=== PATIENT | male | born 2000 | race Caucasian/White ===

== ENCOUNTER 2022-06-10 19:24 | Emergency (ER) | payer BC, SELFPAY ==
--- NOTE | ~2022-06-10 | CT_ITS ---
EXAMINATION: CT ABDOMEN AND PELVIS WITHOUT CONTRAST CLINICAL INFORMATION: Left lower quadrant abdominal pain. COMPARISON: None. TECHNIQUE: Multidetector volumetric imaging was performed from the superior aspect of the liver through the pubic symphysis. Sagittal and coronal reformatted images were obtained on the technologist workstation. This CT examination was performed using dose optimization techniques as appropriate, variously including the following: *Automated exposure control *Adjustment of mA and/or kV according to patient size (this includes techniques or standardized protocols for targeted exams where dose is matched to indication/reason for exam; i.e. extremities or head) *Use of iterative reconstruction technique DLP: 640 mGy-cm. FINDINGS: LUNG BASES: The visualized lung bases are unremarkable. LIVER, GALLBLADDER, AND BILIARY TREE: The liver is normal in size, shape, and attenuation. No focal hepatic lesion on noncontrast imaging. No biliary ductal dilatation is present. The gallbladder is contracted and suboptimally assessed, but grossly unremarkable. No evidence of radiopaque gallstones, gallbladder wall thickening, or obvious pericholecystic inflammatory changes. PANCREAS: Unremarkable on noncontrast imaging. SPLEEN: Unremarkable. ADRENAL GLANDS: Right adrenal gland normal. Mild hypertrophy of left adrenal gland seen. No discrete adrenal mass. KIDNEYS AND URETERS: The kidneys are normal in size, shape, and attenuation. No hydronephrosis, hydroureter, or calculi seen. No perinephric stranding. BLADDER: Decompressed and suboptimally assessed, but grossly unremarkable. No bladder stones seen.. PELVIC VISCERA: Unremarkable. GASTROINTESTINAL TRACT: The small and large bowel are decompressed. There is prominent right lower quadrant mesenteric adenitis seen with the largest lymph node measuring 1.7 x 1.3 cm (series 5, image 39). The cecal base and appendix appear unremarkable. There is fecalization of the succus entericus in the terminal and distal ileum, perhaps signifying stasis. No definite terminal ileal bowel wall thickening or surrounding mesenteric fat stranding or edema is noted. No mesenteric hyperemia is seen. Moderate stool burden is seen throughout the colon, which is decompressed and otherwise unremarkable. No free fluid or evidence of bowel perforation or obstruction is noted. No free air is seen.. The appendix is unremarkable. ABDOMINAL WALL: There is a tiny fat-containing umbilical hernia. LYMPH NODES, VASCULAR: Unremarkable. OSSEOUS STRUCTURES: There is minimal grade 1 retrolisthesis of L5 on S1. Bony structures otherwise unremarkable.. CT/CT abdomen pelvis wo IV con IMPRESSION: 1. Prominent right lower quadrant mesenteric adenitis is seen. 2. Fecalization of the succus entericus in the terminal and distal ileum, perhaps signifying stasis. No definite bowel wall thickening or surrounding mesenteric fat stranding or edema is seen. Findings on noncontrast study are suboptimally assessed and subtle terminal ileitis cannot be entirely excluded. Close clinical correlation is requested.
[2022-06-10 19:39] VITALS: BP 128/82; PULSE 80; RESP 18; TEMP 36.9; O2SAT 98; BMI 26.9
--- NOTE | 2022-06-10 19:44 | ED_ITS ---
HPI - General Adult General Chief complaint: Abdominal Pain <DOMINIQUE Simons - Last Filed: 06/11/22 12:22> Stated complaint: abd pain 3 days <DOMINIQUE Simons - Last Filed: 06/11/22 12:22> Time Seen by Provider: 06/10/22 21:38 <DOMINIQUE Simons - Last Filed: 06/11/22 12:22> Source: patient <Billy Bernardo MD - Last Filed: 06/10/22 23:39> Mode of arrival: ambulatory <Billy Bernardo MD - Last Filed: 06/10/22 23:39> Limitations: no limitations <Billy Bernardo MD - Last Filed: 06/10/22 23:39> History of Present Illness HPI narrative: Patient no significant past medical history traveled to [facility] about 4 weeks ago for last 2-3 weeks having loose stools once or twice a day with left sided abdominal pain with bright red blood when patient wipes no vomiting no nausea no fever no chills patient is hungry and eating normally no other family members sick <Billy Bernardo MD - Last Filed: 06/10/22 23:39> Related Data Home medications: Previous Rx's Medication Instructions Recorded dicyclomine 20 mg tablet 20 mg PO QID PRN abdominal pain 06/10/22 #20 tabs <DOMINIQUE Simons - Last Filed: 06/11/22 12:22> Allergies/adverse reactions: Allergies Allergy/AdvReac Type Severity Reaction Status Date / Time No Known Allergies Allergy Verified 06/10/22 19:39 <DOMINIQUE Simons - Last Filed: 06/11/22 12:22> Review of Systems Review of Systems: Yes all other systems are reviewed and are negative <Billy Bernardo MD - Last Filed: 06/10/22 23:39> FOR[facility]LY [facility] Social History Social History: Social History Advance Directives: No Advance Directives Information Provided: No <DOMINIQUE Simons - Last Filed: 06/11/22 12:22> Physical Exam ED Vital Signs: Vital Signs - 24 hr 06/10/22 19:39 06/10/22 21:57 Temperature 98.4 F 98.4 F Pulse Rate 80 69 Respiratory Rate 18 16 Blood Pressure 128/82 123/73 Pulse Oximetry 98 97 Oxygen Delivery Method Room Air Room Air BMI result Body Mass Index 26.9 <DOMINIQUE Simons - Last Filed: 06/11/22 12:22> Vital Signs - 24 hr 06/10/22 19:39 06/10/22 21:57 Temperature 98.4 F 98.4 F Pulse Rate 80 69 Respiratory Rate 18 16 Blood Pressure 128/82 123/73 Pulse Oximetry 98 97 Oxygen Delivery Method Room Air Room Air BMI result Body Mass Index 26.9 <Billy Bernardo MD - Last Filed: 06/10/22 23:39> Appearance: Alert. Oriented X3. No acute distress. Eyes: No pallor or icterus ENT: Pharynx normal. Oral Mucosa moist Neck: Normal inspection. Neck supple. CVS: Normal heart rate and rhythm. Pulses normal. Respiratory: No respiratory distress. Equal air entry bilateral, Abdomen: Soft mild tenderness left lower quadrant Bowel sounds are present, no mass palpable, no CVA tenderness Skin: Skin warm and dry. Normal skin color. Normal skin turgor. Extremities: No lower extremity edema. No calf tenderness Neuro: Oriented X 3. No motor deficit. <Billy Bernardo MD - Last Filed: 06/10/22 23:39> Course Course Course Narrative: RME: 21 yold male presents to the ED for LLQ pain with blood in stool. patient recently traveled to [facility].NO SYmptoms. NO chest pain or shortness o f breath. NO pleurisy. labs and Dry CT scan of Abdomen ordered <DOMINIQUE Simons - Last Filed: 06/11/22 12:22> Medications Administered Discontinued Medications Generic Name Dose Route Start Last Admin Trade Name Freq PRN Reason Stop Dose Admin Dicyclomine HCl 20 mg 06/10/22 21:48 06/10/22 22:13 Dicyclomine Hcl 10 Mg Capsule PO 06/10/22 21:49 20 mg ONCE ONE Administration <DOMINIQUE Simons - Last Filed: 06/11/22 12:22> Medications Administered Discontinued Medications Generic Name Dose Route Start Last Admin Trade Name Freq PRN Reason Stop Dose Admin Dicyclomine HCl 20 mg 06/10/22 21:48 06/10/22 22:13 Dicyclomine Hcl 10 Mg Capsule PO 06/10/22 21:49 20 mg ONCE ONE Administration <Billy Bernardo MD - Last Filed: 06/10/22 23:39> Medical Decision Making Medical Decision Making [facility] Narrative: Patient nonspecific abdominal pain CT scan showed mesenteric adenitis likely viral labs are stable discharge patient home on Bentyl <Billy Bernardo MD - Last Filed: 06/10/22 23:39> Lab Data [facility] Lab Attestation statement: I reviewed the patient's lab results. <Billy Bernardo MD - Last Filed: 06/10/22 23:39> Result Diagrams: 06/10/22 20:12 06/10/22 20:12 <DOMINIQUE Simons - Last Filed: 06/11/22 12:22> Labs: Lab Results 06/10/22 06/10/22 06/10/22 Range/Units 20:12 20:12 20:12 WBC 10.5 (4.8-10.8) X10*3/uL RBC 4.77 (4.60-5.80) X10*6/uL Hgb 15.2 (14.0-18.0) g/dl Hct 43.0 (42.0-52.0) % MCV 90.1 (80.0-98.0) fL MCH 31.9 (27.0-33.0) pg MCHC 35.3 (31.0-36.0) g/dl RDW 11.3 (11.0-16.0) % Plt Count 231 (160-400) X10*3/uL MPV 9.5 (9.4-12.4) fL Immature Gran % (Auto) 0.2 (0.0-0.4) % Neut % (Auto) 64.3 (45-73) % Lymph % (Auto) 26.6 (20-40) % Sharp % (Auto) 7.7 (2-11) % Eos % (Auto) 0.9 (0-4) % Baso % (Auto) 0.3 (0-2) % Lymph # (Auto) 2.8 (1.2-4.9) X10*3/uL Sharp # (Auto) 0.8 (0.1-1.2) X10*3/uL Eos # (Auto) 0.1 (0.0-0.4) X10*3/uL Baso # (Auto) 0.0 (0.0-0.2) X10*3/uL Abs Immat Gran (auto) 0.02 (0.00-0.03) X10*3/uL Absolute Neuts (auto) 6.8 (2.0-8.3) x10*3/uL Absolute Nucleated RBC 0.000 (0.0-0.012) X10*3/uL Nucleated RBC % (auto) 0.0 (0.0-0.2) /100WBC PT 12.9 (10.0-13.1) SEC INR 1.1 (0.9-1.1) APTT 28.5 (26.0-36.4) SEC Sodium 139 (135-145) mmol/L Potassium 4.3 (3.3-5.1) mmol/L Chloride 104 (96-108) mmol/L Carbon Dioxide 27 (22-29) mmol/L Anion Gap 12 (12-20) BUN 14 (9-16) mg/dL Creatinine 0.88 (0.5-1.4) mg/dL Estim Creat Clear Calc 156.0 Estimated GFR > 60 Random Glucose 111 (60-115) mg/dL Calcium 9.1 (8.4-10.2) mg/dL Total Bilirubin 1.0 (0.0-1.0) mg/dL AST 25 (5-37) U/L ALT 18 (0-40) U/L Alkaline Phosphatase 71 (39-117) U/L Total Protein 7.2 (6.5-8.0) g/dL Albumin 4.5 (3.5-5.0) g/dL Urine Color Urine Appearance Urine pH (5.0-9.0) Ur Specific Trimble (1.005-1.025) Urine Protein (Neg-Trace) mg/dL Urine Glucose (UA) (Negative) mg/dL Urine Ketones (Negative) mg/dL Urine Blood (Negative) Urine Nitrite (Negative) Ur Leukocyte Esterase (Negative) 06/10/22 Range/Units 20:12 WBC (4.8-10.8) X10*3/uL RBC (4.60-5.80) X10*6/uL Hgb (14.0-18.0) g/dl Hct (42.0-52.0) % MCV (80.0-98.0) fL MCH (27.0-33.0) pg MCHC (31.0-36.0) g/dl RDW (11.0-16.0) % Plt Count (160-400) X10*3/uL MPV (9.4-12.4) fL Immature Gran % (Auto) (0.0-0.4) % Neut % (Auto) (45-73) % Lymph % (Auto) (20-40) % Sharp % (Auto) (2-11) % Eos % (Auto) (0-4) % Baso % (Auto) (0-2) % Lymph # (Auto) (1.2-4.9) X10*3/uL Sharp # (Auto) (0.1-1.2) X10*3/uL Eos # (Auto) (0.0-0.4) X10*3/uL Baso # (Auto) (0.0-0.2) X10*3/uL Abs Immat Gran (auto) (0.00-0.03) X10*3/uL Absolute Neuts (auto) (2.0-8.3) x10*3/uL Absolute Nucleated RBC (0.0-0.012) X10*3/uL Nucleated RBC % (auto) (0.0-0.2) /100WBC PT (10.0-13.1) SEC INR (0.9-1.1) APTT (26.0-36.4) SEC Sodium (135-145) mmol/L Potassium (3.3-5.1) mmol/L Chloride (96-108) mmol/L Carbon Dioxide (22-29) mmol/L Anion Gap (12-20) BUN (9-16) mg/dL Creatinine (0.5-1.4) mg/dL Estim Creat Clear Calc Estimated GFR Random Glucose (60-115) mg/dL Calcium (8.4-10.2) mg/dL Total Bilirubin (0.0-1.0) mg/dL AST (5-37) U/L ALT (0-40) U/L Alkaline Phosphatase (39-117) U/L Total Protein (6.5-8.0) g/dL Albumin (3.5-5.0) g/dL Urine Color Yellow Urine Appearance Clear Urine pH 5.5 (5.0-9.0) Ur Specific Trimble >= 1.030 H (1.005-1.025) Urine Protein Negative (Neg-Trace) mg/dL Urine Glucose (UA) Negative (Negative) mg/dL Urine Ketones Trace (Negative) mg/dL Urine Blood Negative (Negative) Urine Nitrite Negative (Negative) Ur Leukocyte Esterase Negative (Negative) <DOMINIQUE Simons - Last Filed: 06/11/22 12:22> Lab Results 06/10/22 06/10/22 06/10/22 Range/Units 20:12 20:12 20:12 WBC 10.5 (4.8-10.8) X10*3/uL RBC 4.77 (4.60-5.80) X10*6/uL Hgb 15.2 (14.0-18.0) g/dl Hct 43.0 (42.0-52.0) % MCV 90.1 (80.0-98.0) fL MCH 31.9 (27.0-33.0) pg MCHC 35.3 (31.0-36.0) g/dl RDW 11.3 (11.0-16.0) % Plt Count 231 (160-400) X10*3/uL MPV 9.5 (9.4-12.4) fL Immature Gran % (Auto) 0.2 (0.0-0.4) % Neut % (Auto) 64.3 (45-73) % Lymph % (Auto) 26.6 (20-40) % Sharp % (Auto) 7.7 (2-11) % Eos % (Auto) 0.9 (0-4) % Baso % (Auto) 0.3 (0-2) % Lymph # (Auto) 2.8 (1.2-4.9) X10*3/uL Sharp # (Auto) 0.8 (0.1-1.2) X10*3/uL Eos # (Auto) 0.1 (0.0-0.4) X10*3/uL Baso # (Auto) 0.0 (0.0-0.2) X10*3/uL Abs Immat Gran (auto) 0.02 (0.00-0.03) X10*3/uL Absolute Neuts (auto) 6.8 (2.0-8.3) x10*3/uL Absolute Nucleated RBC 0.000 (0.0-0.012) X10*3/uL Nucleated RBC % (auto) 0.0 (0.0-0.2) /100WBC PT 12.9 (10.0-13.1) SEC INR 1.1 (0.9-1.1) APTT 28.5 (26.0-36.4) SEC Sodium 139 (135-145) mmol/L Potassium 4.3 (3.3-5.1) mmol/L Chloride 104 (96-108) mmol/L Carbon Dioxide 27 (22-29) mmol/L Anion Gap 12 (12-20) BUN 14 (9-16) mg/dL Creatinine 0.88 (0.5-1.4) mg/dL Estim Creat Clear Calc 156.0 Estimated GFR > 60 Random Glucose 111 (60-115) mg/dL Calcium 9.1 (8.4-10.2) mg/dL Total Bilirubin 1.0 (0.0-1.0) mg/dL AST 25 (5-37) U/L ALT 18 (0-40) U/L Alkaline Phosphatase 71 (39-117) U/L Total Protein 7.2 (6.5-8.0) g/dL Albumin 4.5 (3.5-5.0) g/dL Urine Color Urine Appearance Urine pH (5.0-9.0) Ur Specific Trimble (1.005-1.025) Urine Protein (Neg-Trace) mg/dL Urine Glucose (UA) (Negative) mg/dL Urine Ketones (Negative) mg/dL Urine Blood (Negative) Urine Nitrite (Negative) Ur Leukocyte Esterase (Negative) 06/10/22 Range/Units 20:12 WBC (4.8-10.8) X10*3/uL RBC (4.60-5.80) X10*6/uL Hgb (14.0-18.0) g/dl Hct (42.0-52.0) % MCV (80.0-98.0) fL MCH (27.0-33.0) pg MCHC (31.0-36.0) g/dl RDW (11.0-16.0) % Plt Count (160-400) X10*3/uL MPV (9.4-12.4) fL Immature Gran % (Auto) (0.0-0.4) % Neut % (Auto) (45-73) % Lymph % (Auto) (20-40) % Sharp % (Auto) (2-11) % Eos % (Auto) (0-4) % Baso % (Auto) (0-2) % Lymph # (Auto) (1.2-4.9) X10*3/uL Sharp # (Auto) (0.1-1.2) X10*3/uL Eos # (Auto) (0.0-0.4) X10*3/uL Baso # (Auto) (0.0-0.2) X10*3/uL Abs Immat Gran (auto) (0.00-0.03) X10*3/uL Absolute Neuts (auto) (2.0-8.3) x10*3/uL Absolute Nucleated RBC (0.0-0.012) X10*3/uL Nucleated RBC % (auto) (0.0-0.2) /100WBC PT (10.0-13.1) SEC INR (0.9-1.1) APTT (26.0-36.4) SEC Sodium (135-145) mmol/L Potassium (3.3-5.1) mmol/L Chloride (96-108) mmol/L Carbon Dioxide (22-29) mmol/L Anion Gap (12-20) BUN (9-16) mg/dL Creatinine (0.5-1.4) mg/dL Estim Creat Clear Calc Estimated GFR Random Glucose (60-115) mg/dL Calcium (8.4-10.2) mg/dL Total Bilirubin (0.0-1.0) mg/dL AST (5-37) U/L ALT (0-40) U/L Alkaline Phosphatase (39-117) U/L Total Protein (6.5-8.0) g/dL Albumin (3.5-5.0) g/dL Urine Color Yellow Urine Appearance Clear Urine pH 5.5 (5.0-9.0) Ur Specific Trimble >= 1.030 H (1.005-1.025) Urine Protein Negative (Neg-Trace) mg/dL Urine Glucose (UA) Negative (Negative) mg/dL Urine Ketones Trace (Negative) mg/dL Urine Blood Negative (Negative) Urine Nitrite Negative (Negative) Ur Leukocyte Esterase Negative (Negative) <Billy Bernardo MD - Last Filed: 06/10/22 23:39> Discharge Plan Discharge Clinical Impression: Viral gastroenteritis <DOMINIQUE Simons - Last Filed: 06/11/22 12:22> Patient Disposition: Home, Self-Care <DOMINIQUE Simons - Last Filed: 06/11/22 12:22> Instructions: Gastroenteritis (ED) <DOMINIQUE Simons - Last Filed: 06/11/22 12:22> Additional Instructions: Drink plenty of fluid Bentyl for abdominal cramps <DOMINIQUE Simons - Last Filed: 06/11/22 12:22> Prescriptions: New dicyclomine 20 mg tablet 20 mg PO QID PRN (Reason: abdominal pain) Qty: 20 0RF <DOMINIQUE Simons - Last Filed: 06/11/22 12:22> Interventions: ED Discharge Assessment Last Done: 06/10/22 22:18 <DOMINIQUE Simons - Last Filed: 06/11/22 12:22> Discharge Date/Time: 06/10/22 22:18 <DOMINIQUE Simons - Last Filed: 06/11/22 12:22>
--- NOTE | 2022-06-10 20:15 | MHC.EDTECH ---
pt blood drawn and urine sample collected and sent to lab .
[2022-06-10 20:17] LABS: MANUAL DIFF FLAG NO
[2022-06-10 20:19] LABS: Appearance Urine Clear; Color Urine Yellow; Glucose Urine UA Negative (Negative); Leukocyte Esterase Urine Negative (Negative); Nitrite Urine Negative (Negative); PH 5.5 (5.0-9.0); Specific Gravity - Urine >= 1.030 (1.005-1.025); Urine Blood Negative (Negative); Urine Ketones Trace mg/dL (Negative); Urine Protein Negative (Neg-Trace)
[2022-06-10 20:20] LABS: Basophils Percent Auto 0.3 % (0-2); Eosinophils Absolute Auto 0.1 X10*3/uL (0.0-0.4); Eosinophils Percent Auto 0.9 % (0-4); Hemoglobin 15.2 g/dl (14.0-18.0); Imm Gran Abs Auto 0.02 X10*3/uL (0.00-0.03); Imm Gran Pct Auto 0.2 % (0.0-0.4); Lymphocytes Absolute Auto 2.8 X10*3/uL (1.2-4.9); Lymphocytes Percent Auto 26.6 % (20-40); Mean Corpuscular HGB Conc 35.3 g/dl (31.0-36.0); Mean Corpuscular Hemoglobin 31.9 pg (27.0-33.0); Mean Corpuscular Volume 90.1 fL (80.0-98.0); Mean Platelet Volume 9.5 fL (9.4-12.4); Monocytes Absolute Auto 0.8 X10*3/uL (0.1-1.2); Monocytes Percent Auto 7.7 % (2-11); Neutrophils Absolute Auto 6.8 x10*3/uL (2.0-8.3); Neutrophils Percent Auto 64.3 % (45-73); Platelet Count 231 X10*3/uL (160-400); Red Blood Count 4.77 X10*6/uL (4.60-5.80); Red Cell Distribution Width 11.3 % (11.0-16.0); White Blood Count 10.5 X10*3/uL (4.8-10.8)
[2022-06-10 20:26] LABS: INTERNATIONAL NORM RATIO 1.1 (0.9-1.1); Prothrombin Time 12.9 SEC (10.0-13.1)
[2022-06-10 20:28] LABS: Partial Thromboplastin Time 28.5 SEC (26.0-36.4)
[2022-06-10 20:58] LABS: Alanine Aminotransferase 18 U/L (0-40); Albumin Level 4.5 g/dL (3.5-5.0); Alkaline Phosphatase 71 U/L (39-117); Anion Gap 12 (12-20); Aspartate Amino Transferase 25 U/L (5-37); Blood Urea Nitrogen 14 mg/dL (9-16); Calcium 9.1 mg/dL (8.4-10.2); Carbon Dioxide 27 mmol/L (22-29); Chloride 104 mmol/L (96-108); Estimated Glomerular Filt Rate > 60; Glucose Random 111 mg/dL (60-115); Potassium 4.3 mmol/L (3.3-5.1); Sodium 139 mmol/L (135-145); Total Protein 7.2 g/dL (6.5-8.0)
[2022-06-10 21:57] VITALS: BP 123/73; PULSE 69; RESP 16; TEMP 36.9; O2SAT 97
[2022-06-10] MEDS: Dicyclomine HCl 10 MG CAPSULE 20 MG PO (22:13)
== END 2022-06-10 22:18 | disposition home or self-care (01) ==
PROVIDERS: Physician Assistant; Emergency Provider Internal Medicine; PCP Family Medicine
DX: K52.9 Noninfective gastroenteritis and colitis, unspecified (principal); R10.9 Unspecified abdominal pain; Z79.899 Other long term (current) drug therapy
CPT/HCPCS: 36415; 74176; 80053; 81003; 85025; 85610; 85730; 99283